=== PATIENT | male | born 1990 | race Caucasian/White ===

== ENCOUNTER 2023-08-22 16:25 | Outpatient (OUT) | payer MEDICAID, SELFPAY | END 2023-08-22 16:26 | disposition home or self-care (01) | LOC: SLEEP 16:25 | PROVIDERS: PCP Psychiatry & Neurology Neurology; Visit Provider Psychiatry & Neurology Neurology | DX: G47.33 Obstructive sleep apnea (adult) (pediatric) (principal) | CPT/HCPCS: 95806 ==